=== PATIENT | female | born 1990 | race Caucasian/White ===

== ENCOUNTER 2020-03-18 18:44 | Outpatient (CLI) | payer MEDICAID ==
[2020-03-18 19:36] LABS: AMORPHOUS SEDIMENT,URINE 1+ /HPF; APPEARANCE,URINE TURBID; BILIRUBIN,URINE SMALL (NEGATIVE); COLOR,URINE YELLOW; GLUCOSE, URINE 50 mg/dL (NEGATIVE); KETONES,URINE TRACE mg/dL (NEGATIVE); LEUKOCYTE ESTERASE,URINE LARGE (NEGATIVE); NITRITE,URINE NEGATIVE (NEGATIVE); PROTEIN,URINE 30 mg/dL (NEGATIVE); URINE SPECIFIC GRAVITY 1.038
[2020-03-18 19:58] LABS: URINE AMPHETAMINES SCREEN NEGATIVE; URINE BARBITURATES SCREEN NEGATIVE; URINE BENZODIAZEPINES SCREEN NEGATIVE; URINE COCAINE SCREEN NEGATIVE; URINE MARIJUANA (THC) SCREEN NEGATIVE; URINE METHADONE SCREEN NEGATIVE; URINE PHENCYCLIDINE SCREEN NEGATIVE
--- NOTE | 2020-03-18 21:52 | Non Stress Test Report ---
Non Stress Test Datetime Report Generated by CPN: 03/18/2020 21:52 DEMOGRAPHIC EGA NST: 34.2 INDICATION Indication for Study (NST) Other: cramping VITAL SIGNS Temperature - NST: 98.0 Pulse - NST: 96 RESP - NST: 16 NBPSYS NST: 100 NBPDIA NST: 56 URINE RESULTS Urine Protein, NST: Positive Urine Ketones - NST: Positive Urine Glucose - NST: Positive Urine Blood - NST: Negative MONITORING Monitor Explained: Monitor Explained; Test Explained; Patient Verbalized Understanding Time on Monitor: 03/18/2020 19:00 Time off Monitor: 03/11/2020 20:23 NST Duration: -9997 NST INTERVENTIONS NST Interventions: PO Hydration; Reposition Patient Physician Notified NST: Dr Galarza BABY A: [id number] BABY A Movement : Present Contraction Frequency : x1 FHR Baseline : 130 Accelerations : 15X15 Decelerations : None Variability : Moderate 6-25bpm NST Review: Meets Criteria for Reactive NST NST Review and Verified By : ИВАН WETZELT Results: Reactive NST REPORT Report Trigger: Send Report
== END 2020-03-18 20:34 | disposition home or self-care (01) ==
LOC: LC 18:44
PROVIDERS: ATTEND Obstetrics & Gynecology Gynecology
DX: O47.03 False labor before 37 completed weeks of gestation, third trimester (principal); O26.893 Other specified pregnancy related conditions, third trimester; E86.0 Dehydration; Z3A.34 34 weeks gestation of pregnancy
CPT/HCPCS: 59025; 80307; 81001